=== PATIENT | female | born 1955 | race Caucasian/White ===

== ENCOUNTER → 2016-11-03 | Outpatient (CLI) | payer MEDICARE ==
[2016-11-03 12:26] LABS: PROTHROMBIN TIME 25.2 SEC (11.4-15.4)
== END ==
LOC: OD 11:32
PROVIDERS: ATTEND Surgery Vascular Surgery
DX: Z79.01 Long term (current) use of anticoagulants (principal)
CPT/HCPCS: 36415; 85610

== ENCOUNTER → 2020-05-21 | Outpatient (CLI) | payer MEDICARE ==
[2020-05-21 12:02] LABS: INTERNATIONAL RATION (INR) 2.24; PROTHROMBIN TIME 24.8 SEC (11.4-15.4)
== END ==
LOC: OD 11:13
DX: Z51.81 Encounter for therapeutic drug level monitoring (principal); Z79.01 Long term (current) use of anticoagulants
CPT/HCPCS: 36415; 85610